=== PATIENT | female | born 1990 | race Caucasian/White ===

== ENCOUNTER 2018-06-02 05:56 | Emergency (ER) | payer OTHER ==
[~2018-06-02] VITALS: Ht 165.1 cm; Wt 87.1 kg
[2018-06-02 06:01] VITALS: Ht 165.1 cm; Wt 87.1 kg
[2018-06-02 08:21] VITALS: BP 106/42
== END 2018-06-02 08:21 | disposition home or self-care (01) ==
LOC: ED 05:56
DX: R07.89 Other chest pain (principal); M54.9 Dorsalgia, unspecified

== ENCOUNTER 2019-03-26 19:42 | Emergency (ER) | payer OTHER ==
[~2019-03-26] VITALS: Ht 165.1 cm; Wt 93.0 kg
[2019-03-26 20:22] VITALS: Ht 165.1 cm; Wt 93.0 kg
[2019-03-26 21:16] VITALS: BP 121/60
== END 2019-03-26 21:16 | disposition home or self-care (01) ==
LOC: ED 19:42
DX: S01.81XD Laceration without foreign body of other part of head, subsequent encounter (principal); J06.9 Acute upper respiratory infection, unspecified; X58.XXXD Exposure to other specified factors, subsequent encounter

== ENCOUNTER 2019-08-25 10:00 | Emergency (ER) | payer OTHER ==
[~2019-08-25] VITALS: Ht 160 cm; Wt 91.6 kg
[2019-08-25 10:04] VITALS: BP 125/78; Ht 160 cm; Wt 91.6 kg
== END 2019-08-25 12:31 | disposition home or self-care (01) ==
LOC: ED 10:00
DX: S16.1XXA Strain of muscle, fascia and tendon at neck level, initial encounter (principal); V49.9XXA Car occupant (driver) (passenger) injured in unspecified traffic accident, initial encounter; Y93.89 Activity, other specified; Y92.89 Other specified places as the place of occurrence of the external cause; Y99.8 Other external cause status
CPT/HCPCS: J1885

== ENCOUNTER 2020-11-23 12:04 | Emergency (ER) | payer OTHER ==
[~2020-11-23] VITALS: Ht 167.6 cm; Wt 99.8 kg
[2020-11-23 12:06] VITALS: Ht 167.6 cm; Wt 99.8 kg
[2020-11-23 13:06] VITALS: BP 128/87
== END 2020-11-23 13:06 | disposition home or self-care (01) ==
LOC: ED 12:04
DX: U07.1 COVID-19 (principal); J45.909 Unspecified asthma, uncomplicated